=== PATIENT | female | born 2005 | race African-American/Black ===

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

== ENCOUNTER 2024-08-01 13:19 | Inpatient (IN) | payer OTHER, SELFPAY ==
[2024-08-01] MEDS ORDERED: NA CHLORIDE 0.9% 2,000 ML ONE (13:53)
[2024-08-01] MEDS ORDERED: ONDANSETRON 4 MG/2 ML VIAL ONE (13:53)
[2024-08-01 13:57] LABS: Absolute Basophils 0.1 K/uL (0-0.5); Absolute Eosinophils 0.1 K/uL (0-0.5); Absolute Lymphocytes (CBC) 0.7 K/uL (0.7-4.9); Absolute Monocytes 0.6 K/uL (0.1-1.3); Absolute Neutrophil 13.4 K/uL (1.8-8.0); Basophils % 0.3 % (0-1.3); Eosinophils % 0.4 % (0-4.4); Hematocrit 46.2 % (36.0-45.0); Hemoglobin 13.8 g/dL (12.0-15.0); Lymphocytes % 4.6 % (15.3-44.8); MCH 27.6 pg (27.0-35.0); MCHC 29.9 g/dL (32.0-36.0); MCV 92.5 fL (80-100); MPV 9.3 fL (7.6-11.3); Monocytes % 3.8 % (3.3-12.3); Neutrophils % 90.9 % (41.7-73.7); Platelets 328 thou/uL (152-406); RBC Red Blood Cell Count 4.99 M/uL (3.86-4.86); Red Cell Distribution Width 13.9 % (12.1-15.2)
[2024-08-01] MEDS ORDERED: KETOROLAC 30 MG/ML INJ ONE (14:09)
[2024-08-01 14:22] LABS: Specific Gravity 1.024 (1.005-1.030); Sqamous Epithelial <5 /HPF (None Seen); Urine Bacteria <20 /HPF (<20); Urine Bilirubin NEGATIVE (Negative); Urine Blood Negative (Negative); Urine Clarity Clear (Clear); Urine Color Colorless (Yellow); Urine Culture Reflex Order NOT NEEDED; Urine Glucose 4+ (Over) (Negative); Urine Ketones 4+ (Over) (Negative); Urine Micro Reflex YN NO BILL MICROSCOPIC; Urine Mucus Slight /HPF (None Seen); Urine Nitrite NEGATIVE (Negative); Urine Protein NEGATIVE (Negative); Urine RBC <5 /HPF (None Seen); Urine Urobilinogen Normal (Normal); Urine WBC <5 /HPF (<5)
[2024-08-01 14:54] LABS: ALT/SGPT 19 U/L (13-56); AST/SGOT 20 U/L (15-37); Albumin 4.2 g/dL (3.4-5.0); Albumin/Globulin Ratio 0.9 (1.1-1.8); Alkaline Phosphatase 140 U/L (45-117); Anion Gap 28.4 mEq/L (5.0-15.0); BUN Blood Urea Nitrogen 15 mg/dL (7-18); Bilirubin Direct 0.2 mg/dL (0-0.2); Bilirubin Indirect, Calculated 0.5 mg/dL (0.2-0.8); Bilirubin Total 0.7 mg/dL (0.2-1.0); Globulin 4.9 g/dL (2.3-3.5); Glomerular Filtration Rate 54 ml/min (=/>90); Glucose Level 686 mg/dL (74-106); Lipase 13 U/L (13-75); Magnesium 2.5 mg/dL (1.6-2.4); Potassium 4.4 mEq/L (3.5-5.1); Protein, Total 9.1 g/dL (6.4-8.2); Sodium Level 135 mEq/L (136-145)
[2024-08-01 14:59] LABS: Bicarbonate 9 mEq/L (21-32)
[2024-08-01 15:02] LABS: Blood Morphology Comment NOT SEEN (NOT SEEN); Platelet Estimate ADEQ; White Blood Cell Scan OK (OK)
[2024-08-01 15:05] LABS: BETA HYDROXYBUTYRATE > 4.50 mmol/L (0.02-0.27)
--- NOTE | 2024-08-01 16:10 | EDPHYS ---
Physician Documentation [facility] Name: Jono Gacres Age: 19 yrs Sex: Female : 2005 Arrival Date: 08/01/2024 Time: 13:19 Bed 19 Private MD: ED Physician Mick Brito HPI: 08/01 14:31 This 19 yrs old Black Female presents to ER via Ambulatory with complaints of High sb4 Blood Sugar, Vomiting. 14:31 Patient with history of type 1 diabetes states that she has not her insulin pump in sb4 about 3 weeks now because her insurance would not pay for a new Dexcom. States that she has been giving herself insulin intermittently but not really checking her blood sugar. States that she started feeling poorly last night and this morning started experiencing nausea and vomiting. 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 - Infectious Disease History:: Denies. - Social history:: Smoking status: Patient denies any tobacco usage or history of. ROS: 14:31 Constitutional: Negative for fever, chills, and weight loss, sb4 14:31 Abdomen/GI: Positive for nausea and vomiting, 14:31 All other systems are negative, Exam: 14:31 Head/Face: Normocephalic, atraumatic. Eyes: Extra-ocular motions intact. Periorbital sb4 areas with no swelling, redness, or edema. Cardiovascular: Regular rate and rhythm with a normal S1 and S2. Respiratory: No increased work of breathing, no retractions or nasal flaring. Abdomen/GI: Soft, non-tender, no distension. Skin: Warm, dry with normal turgor. Normal color with no rashes, no lesions, and no evidence of cellulitis. 14:31 Constitutional: The patient appears alert, awake, in obvious distress, mildly distressed, uncomfortable, 14:31 ENT: Mouth: Oral mucosa: dry, Vital Signs: 13:35 BP 125 / 70; Pulse 95; Resp 19; Temp 98.6(O); Pulse Ox 100% on R/A; MAP 87 mmHg; Weight tm6 86.18 kg; Height 5 ft. 5 in. ; Pain 8/10; 14:30 BP 125 / 70; Pulse 99; Resp 20; ll1 15:30 BP 122 / 72; Pulse 96; Resp 18; Pulse Ox 100% ; ll1 16:34 BP 120 / 71; Pulse 97; Resp 18; Pulse Ox 100% on R/A; Pain 0/10; ll1 13:35 Body Mass Index 31.62 (86.18 kg, 165.1 cm) tm6 13:35 Pain Scale: Adult tm6 16:34 Pain Scale: Adult ll1 MDM: 13:27 Medical Screening Exam initiated sb4 15:51 Data reviewed: vital signs, nurses notes, lab test result(s). Counseling: I had a sb4 detailed discussion with the patient and/or guardian regarding the historical points, exam findings, and any diagnostic results supporting the discharge/admit diagnosis, lab results, the need for further work-up and treatment in the hospital. 08/01 13:32 Order name: BETA HYDROXYBUTYRATE; Complete Time: 15:07 sb4 08/01 13:32 Order name: Basic Metabolic Panel; Complete Time: 15:07 sb4 08/01 13:32 Order name: CBC with Diff; Complete Time: 15:07 sb4 08/01 13:32 Order name: Hepatic Function; Complete Time: 15:07 sb4 08/01 13:32 Order name: Lipase; Complete Time: 15:07 sb4 08/01 13:32 Order name: Magnesium; Complete Time: 15:07 sb4 08/01 13:32 Order name: Phosphorus; Complete Time: 15:07 sb4 08/01 13:32 Order name: UAM; Complete Time: 14:23 sb4 08/01 13:32 Order name: Test, Urine; Complete Time: 14:23 sb4 08/01 13:42 Order name: Glucose, Ancillary Testing; Complete Time: 13:42 EDMS 08/01 15:02 Order name: CBC Smear Scan; Complete Time: 15:07 EDMS 08/01 16:19 Order name: Basic Metabolic Panel EDAK 08/01 16:19 Order name: Basic Metabolic Panel EDAK 08/01 16:19 Order name: Basic Metabolic Panel EDAK 08/01 16:19 Order name: Basic Metabolic Panel EDMS 08/01 16:19 Order name: Basic Metabolic Panel EDMS 08/01 16:19 Order name: Basic Metabolic Panel EDMS 08/01 16:19 Order name: Basic Metabolic Panel EDMS 08/01 16:19 Order name: Calcium Level EDMS 08/01 16:19 Order name: Calcium Level EDMS 08/01 16:19 Order name: Calcium Level EDMS 08/01 16:19 Order name: Calcium Level EDMS 08/01 16:19 Order name: CBC with Automated Diff EDMS 08/01 16:19 Order name: CBC with Automated Diff EDMS 08/01 16:19 Order name: CBC with Automated Diff EDMS 08/01 16:19 Order name: CBC with Automated Diff EDMS 08/01 16:19 Order name: Magnesium EDMS 08/01 16:19 Order name: Magnesium EDMS 08/01 16:19 Order name: Magnesium EDMS 08/01 16:19 Order name: Magnesium EDMS 08/01 16:19 Order name: Phosphorus EDMS 08/01 16:19 Order name: Phosphorus EDMS 08/01 16:19 Order name: Phosphorus EDMS 08/01 16:19 Order name: Phosphorus EDMS 08/01 17:10 Order name: Glucose, Ancillary Testing; Complete Time: 17:10 EDMS 08/01 13:32 Order name: Cardiac monitoring; Complete Time: 13:58 sb4 08/01 13:32 Order name: IV Saline Lock; Complete Time: 13:50 sb4 08/01 13:32 Order name: NPO; Complete Time: 13:33 sb4 08/01 13:32 Order name: O2 Per Protocol; Complete Time: 13:33 sb4 08/01 13:32 Order name: O2 Sat Monitoring; Complete Time: 13:33 sb4 08/01 14:01 Order name: Labs - recollect needed: GREEN TOP ONLY; Complete Time: 14:12 ss Administered Medications: 13:58 Drug: NS 0.9% IV 2000 ml IV at 1000 ml once; to be given as a bolus over 60 minutes ll1 Route: IV; Rate: 1000 ml; Site: left hand; 16:53 Follow up: Response: No adverse reaction; IV Status: Completed infusion; IV Intake: ll1 2000ml 13:58 Drug: Ondansetron IVP 4 mg IVP once; over 2 minutes Route: IVP; Site: left hand; ll1 14:29 Follow up: Response: No adverse reaction; Nausea is decreased ll1 14:29 Drug: Ketorolac IVP 15 mg IVP once Route: IVP; Site: right antecubital; ll1 15:30 Follow up: Response: No adverse reaction; Pain is decreased ll1 15:52 Drug: Insulin Drip - (Insulin Regular Human IVP 100 units, NS 0.9% IV 100 ml) IV at ll1 calculated rate continuous; Standard concentration 1unit/ml; Dose for DKA is 0.1 units/kg/hr {Co-Signature: hb (Diandra Madden RN).} Route: IV; Rate: calculated rate; Site: right antecubital; 16:53 Follow up: Response: No adverse reaction; IV Status: Infusion continued upon admission; ll1 IV Intake: 8.6ml 16:59 Follow up: Response: Blood sugar is lowered; Rate change 4.3 units/hr ll1 Disposition: 19:48 Co-signature as Attending Physician, Mick Brito MD I reviewed the patient's care rn provided by the Advanced Practice Provider and agree with the diagnosis and treatment plan. Disposition Summary: 08/01/24 16:09 Hospitalization Ordered Notes: Hospitalization Status: Inpatient Admission sb4 Provider: Madison Fuentes Location: Intensive Care Unit sb4 Condition: Serious sb4 Problem: new sb4 Symptoms: are unchanged sb4 Bed/Room Type: Standard sb4 Room Assignment: 7-(08/01/24 16:21) eb Diagnosis - Type 1 diabetes mellitus with ketoacidosis without coma sb4 Forms: - Medication Reconciliation Form sb4 - SBAR form sb4 - Leadership Thank You Letter sb4 Critical care time excluding procedures: 15:51 Critical care time: Bedside Care: 15 minutes, Consultation: 10 minutes, Family sb4 Intervention: 10 minutes. Total time: 35 minutes Signatures: Dispatcher [employer] EDMick Hidalgo MD MD rn Blanchard, Shelby, RN RN ss Botello, Elizabeth eb Lewis, Lynsay, RN RN ll1 Isabel Olivares PA-C PA-C sb4 Scott Fabian RN RN tm6 Diandra Madden RN Corrections: (The following items were deleted from the chart) 16:21 16:09 sb4 eb
--- NOTE | 2024-08-01 16:10 | ER ---
Nurse's Notes [facility] Name: Jono Garces Age: 19 yrs Sex: Female : 2005 Arrival Date: 08/01/2024 Time: 13:19 Bed 19 Private MD: Diagnosis: Type 1 diabetes mellitus with ketoacidosis without coma Presentation: 08/01 13:35 Chief complaint: Patient states: n/v since this morning, has had difficulty managing tm6 type 1 diabetes. Complaining of stomach and headache. Coronavirus screen: Client denies travel out of the [place] in the last 14 days. Ebola Screen: Patient negative for fever greater than or equal to 101.5 degrees Fahrenheit, and additional compatible Ebola Virus Disease symptoms Patient denies exposure to infectious person. Patient denies travel to an Ebola-affected area in the 21 days before illness onset. No symptoms or risks identified at this time. Initial Sepsis Screen: Does the patient meet any 2 criteria? No. Patient's initial sepsis screen is negative. Does the patient have a suspected source of infection? No. Patient's initial sepsis screen is negative. Risk Assessment: Do you want to hurt yourself or someone else? Patient reports no desire to harm self or others. Onset of symptoms was August 01, 2024. 13:35 Method Of Arrival: Ambulatory tm6 13:35 Acuity: KERRY 3 tm6 Triage Assessment: 13:36 General: Appears uncomfortable, ill, Behavior is cooperative. Pain: Complains of pain tm6 in face and abdomen Pain currently is 8 out of 10 on a pain scale. EENT: No signs and/or symptoms were reported regarding the EENT system. Neuro: Level of Consciousness is awake, alert, obeys commands, Oriented to person, place, time, situation. Cardiovascular: Patient's skin is warm and dry. Respiratory: Airway is patent Respiratory effort is even, unlabored, Respiratory pattern is regular, symmetrical. GI: Reports lower abdominal pain, upper abdominal pain, nausea, vomiting. : No signs and/or symptoms were reported regarding the genitourinary system. Derm: No signs and/or symptoms reported regarding the dermatologic system. Musculoskeletal: No signs and/or symptoms reported regarding the musculoskeletal system. 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 - Infectious Disease History:: Denies. - Social history:: Smoking status: Patient denies any tobacco usage or history of. Screenin:00 [facility] ED Fall Risk Assessment (Adult) History of falling in the last 3 months, ll1 including since admission No falls in past 3 months (0 pts) Confusion or Disorientation No (0 pts) Intoxicated or Sedated No (0 pts) Impaired Gait Yes (1 pt) Mobility Assist Device Used Yes (1 pt) Altered Elimination No (0 pt) Score/Fall Risk Level 0 - 2 = Low Risk Maintained a safe environment, Hourly rounding (assess needs \T\ fall precautionary measures) done. Abuse screen: Denies threats or abuse. Nutritional screening: No deficits noted. Tuberculosis screening: No symptoms or risk factors identified. Assessment: 13:58 General: Appears distressed, uncomfortable, ill, Behavior is calm, cooperative, ll1 appropriate for age. Pain: Complains of pain in upper body Quality of pain is described as aching. Neuro: Reports headache. GI: Reports lower abdominal pain, upper abdominal pain, cramping, nausea, vomiting. 14:29 Reassessment: No changes from previously documented assessment. Patient and/or family ll1 updated on plan of care and expected duration. Pain level reassessed. 15:30 Reassessment: No changes from previously documented assessment. Patient and/or family ll1 updated on plan of care and expected duration. Pain level reassessed. Patient is alert, oriented x 3, equal unlabored respirations, skin warm/dry/pink. 15:55 Reassessment: No changes from previously documented assessment. Patient and/or family ll1 updated on plan of care and expected duration. Pain level reassessed. 16:59 Reassessment: No changes from previously documented assessment. Patient and/or family ll1 updated on plan of care and expected duration. Pain level reassessed. Patient is alert, oriented x 3, equal unlabored respirations, skin warm/dry/pink. Vital Signs: 13:35 BP 125 / 70; Pulse 95; Resp 19; Temp 98.6(O); Pulse Ox 100% on R/A; MAP 87 mmHg; Weight tm6 86.18 kg; Height 5 ft. 5 in. ; Pain 8/10; 14:30 BP 125 / 70; Pulse 99; Resp 20; ll1 15:30 BP 122 / 72; Pulse 96; Resp 18; Pulse Ox 100% ; ll1 16:34 BP 120 / 71; Pulse 97; Resp 18; Pulse Ox 100% on R/A; Pain 0/10; ll1 13:35 Body Mass Index 31.62 (86.18 kg, 165.1 cm) tm6 13:35 Pain Scale: Adult tm6 16:34 Pain Scale: Adult ll1 ED Course: 13:22 Patient arrived in ED. im 13:23 Isabel Olivares PA-C is PHCP. sb4 13:23 Mick Brito MD is Attending Physician. sb4 13:31 Kristyn Mcmahan RN is Primary Nurse. ll1 13:32 Arm band placed on Patient placed in an exam room, on a stretcher. ll1 13:36 Triage completed. tm6 13:40 No provider procedures requiring assistance completed. Missed attempt(s): 22 gauge in ll1 left hand. Bleeding controlled, band aid applied, catheter tip intact. 13:45 Inserted saline lock: 24 gauge in left hand, using aseptic technique. Blood collected. ll1 Flushed with 10 mL NS. 14:00 Patient has correct armband on for positive identification. Bed in low position. ll1 Provided Education on: ER procedures and process. Client placed on continuous cardiac and pulse oximetry monitoring. NIBP monitoring applied. 14:12 UAM Sent. ll1 14:25 Accessed peripheral vein via ultrasound, utilizing dynamic ultrasound technique using ss 20G Nexia IV catheter ,sterile technique, per hospital protocol. Clean \T\ dry. Dressing intact. Good blood return. Flushes easily. 16:09 Madison Fuentes MD is Hospitalizing Provider. sb4 16:54 Patient admitted, IV remains in place. ll1 Administered Medications: 13:58 Drug: NS 0.9% IV 2000 ml IV at 1000 ml once; to be given as a bolus over 60 minutes ll1 Route: IV; Rate: 1000 ml; Site: left hand; 16:53 Follow up: Response: No adverse reaction; IV Status: Completed infusion; IV Intake: ll1 2000ml 13:58 Drug: Ondansetron IVP 4 mg IVP once; over 2 minutes Route: IVP; Site: left hand; ll1 14:29 Follow up: Response: No adverse reaction; Nausea is decreased ll1 14:29 Drug: Ketorolac IVP 15 mg IVP once Route: IVP; Site: right antecubital; ll1 15:30 Follow up: Response: No adverse reaction; Pain is decreased ll1 15:52 Drug: Insulin Drip - (Insulin Regular Human IVP 100 units, NS 0.9% IV 100 ml) IV at ll1 calculated rate continuous; Standard concentration 1unit/ml; Dose for DKA is 0.1 units/kg/hr {Co-Signature: hb (Diandra Madden RN).} Route: IV; Rate: calculated rate; Site: right antecubital; 16:53 Follow up: Response: No adverse reaction; IV Status: Infusion continued upon admission; ll1 IV Intake: 8.6ml 16:59 Follow up: Response: Blood sugar is lowered; Rate change 4.3 units/hr ll1 Medication: 14:00 VIS not applicable for this client. ll1 Intake: 16:53 IV: 2000ml; Total: 2000ml. ll1 16:53 IV: 9ml; Total: 2009ml. ll1 Outcome: 16:09 Decision to Hospitalize by Provider. sb4 16:54 Admitted to ICU accompanied by nurse, via stretcher, room ICU 7, on monitor, with ll1 chart, Report called to DEJA Ward in ICU 16:54 Condition: stable 16:54 Instructed on the need for admit, 17:27 Patient left the ED. ss Signatures: Keila Turk RN RN ss Kristyn Mcmahan RN RN ll1 Isabel Olivares PA-C PAOctaviano sb4 Cady Cardenas Tawney RN RN tm6 Diandra Madden RN hb
[2024-08-01] MEDS ORDERED: ONDANSETRON 4 MG/2 ML VIAL IV PRN (16:13)
[2024-08-01] MEDS: D5 0.45 NS 1,000 ML IV SCH (17:00)
[2024-08-01] MEDS: NA CHLORIDE 0.9% 1,000 ML IV SCH (17:00)
[2024-08-01] MEDS: INSULIN REGULAR, HUMAN 100 UNIT in NA CHLORIDE 0.9% 100 ML IV SCH (19:00)
[2024-08-01 19:39] LABS: Anion Gap 16.6 mEq/L (5.0-15.0); Potassium 3.6 mEq/L (3.5-5.1)
[2024-08-01] MEDS: NAPROXEN 250 MG TAB PO PRN (21:09)
[2024-08-01 22:29] LABS: Anion Gap 13.8 mEq/L (5.0-15.0); Potassium 3.8 mEq/L (3.5-5.1)
--- NOTE | 2024-08-02 00:03 | P.HP ---
Certification for Inpatient Patient admitted to: Inpatient With expected LOS: >2 Midnights Patient will require the following post-hospital care: None Practitioner: I am a practitioner with admitting privileges, knowledge of patient current condition, hospital course, and medical plan of care. Services: Services provided to patient in accordance with Admission requirements found in Title 42 Section 412.3 of the Code of Federal Regulations Patient History Date of Service: 08/01/24 Reason for admission: Diabetic ketoacidosis History of Present Illness: patient is a 19-year-old female with history of diabetic ketoacidosis who presents to the hospital with elevated blood sugars. Patient recently got placed on insulin pump. However patient had a dexcom that was nonfunctional. She stopped using her insulin pump. She has been taking her NovoLog. However, her blood sugars have still been elevated. She started having nausea and vomiting and she stopped taking her insulin. Her blood sugars became significantly elevated so she came into the emergency room with diabetic ketoacidosis. Patient is given IV fluids and insulin drip. Blood sugars are stabilizing. Patient admitted for inpatient hospitalization. Allergies No Known Allergies Allergy (Verified 11/13/21 18:52) Home Medications: Insulin Aspart [Novolog Flexpen] See Protocol 08/01/24 Insulin Degludec [Tresiba Flextouch U-200] 25 unit SQ DAILY 08/01/24 - Past Medical/Surgical History Has patient received pneumonia vaccine in the past: No -: Type 1 diabetes Past Surgical History: Patient denies surgical history - Family History Mother Notes: gestational diabetes Father Notes: asthma - Social History Smoking Status: Never smoker Alcohol use: Yes CD- Drugs: No Caffeine use: Yes Place of Residence: Home Review of Systems 10-point ROS is otherwise unremarkable Physical Examination - Vital Signs Temperature: 98.1 F Blood Pressure: 109/59 Pulse: 101 Respirations: 18 Pulse Ox (%): 100 - Physical Exam General: Alert, In no apparent distress, Oriented x3 HEENT: Atraumatic, PERRLA, Mucous membr. moist/pink, EOMI, Sclerae nonicteric Neck: Supple, 2+ carotid pulse no bruit, No LAD, Without JVD or thyroid abnormality Respiratory: Clear to auscultation bilaterally, Normal air movement Cardiovascular: Regular rate/rhythm, Normal S1 S2 Gastrointestinal: Normal bowel sounds, Soft and benign, Non-distended, No tenderness Musculoskeletal: No clubbing, No swelling, No tenderness Integumentary: No rashes Neurological: Normal gait, Normal speech, Normal strength at 5/5 x4 extr, Normal tone, Sensation intact, Cranial nerves 3-12 intact, Normal affect Lymphatics: No axilla or inguinal lymphadenopathy - Studies Laboratory Data (last 24 hrs) 08/01/24 08/01/24 14:22 13:48 WBC 14.70 H Hgb 13.8 Hct 46.2 H Plt Count 328 Sodium 135 L Potassium 4.4 BUN 15 Creatinine 1.41 H Glucose 686 H* Phosphorus 6.0 H Magnesium 2.5 H Total Bilirubin 0.7 AST 20 ALT 19 Alkaline Phosphatase 140 H Lipase 13 Assessment & Plan - Problems (Diagnosis) (1) Diabetic ketoacidosis Current Visit: Yes Status: Acute - Plan Plan: 1. Continue with aggressive IV hydration 2. Continue with an insulin drip 3. Monitor electrolytes 4. Start diabetic diet. Long-acting insulin if patient tolerates it once anion gap is closed. 5. Outpatient follow-up for insulin pump replacement or DexCom. Discharge Plan: Home Plan to discharge in: 48 Hours - Advance Directives Does patient have a Living Will: No Does patient have a Durable POA for Healthcare: No - Code Status/Comfort Care Code Status Assessed: Yes Code Status: Full Code Critical Care: Yes Time Spent Managing PTS Care (In Minutes): 45
[2024-08-02 05:39] LABS: Absolute Eosinophils 0.1 K/uL (0-0.5); Absolute Lymphocytes (CBC) 1.9 K/uL (0.7-4.9); Absolute Monocytes 0.8 K/uL (0.1-1.3); Absolute Neutrophil 7.3 K/uL (1.8-8.0); Basophils % 0.3 % (0-1.3); Eosinophils % 1.1 % (0-4.4); Hematocrit 37.1 % (36.0-45.0); Hemoglobin 11.6 g/dL (12.0-15.0); Lymphocytes % 18.8 % (15.3-44.8); MCH 27.8 pg (27.0-35.0); MCHC 31.2 g/dL (32.0-36.0); MCV 89.4 fL (80-100); MPV 8.8 fL (7.6-11.3); Monocytes % 7.8 % (3.3-12.3); Platelets 262 thou/uL (152-406); RBC Red Blood Cell Count 4.15 M/uL (3.86-4.86); Red Cell Distribution Width 13.8 % (12.1-15.2)
[2024-08-02 05:51] LABS: Anion Gap 17.3 mEq/L (5.0-15.0); Magnesium 2.1 mg/dL (1.6-2.4); Potassium 4.3 mEq/L (3.5-5.1)
[2024-08-02] MEDS ORDERED: INSULIN DEGLUDEC 25 UNIT SQ SCH (06:00)
[2024-08-02] MEDS: INSULIN REGULAR, HUMAN 100 UNIT in NA CHLORIDE 0.9% 100 ML IV SCH (06:00)
[2024-08-02] MEDS: D5 0.45 NS 1,000 ML IV SCH ×2 (06:11→06:42)
[2024-08-02] MEDS ORDERED: INSULIN REGULAR, HUMAN 100 UNIT in NA CHLORIDE 0.9% 100 ML IV SCH (06:30)
[2024-08-02] MEDS ORDERED: INSULIN REGULAR (HUMAN) 100 UNIT/ML IV SCH ×2 (06:30→07:00)
[2024-08-02] MEDS: NA CHLORIDE 0.9% 1,000 ML IV SCH ×2 (06:43→06:46)
[2024-08-02] MEDS ORDERED: INSULIN REGULAR (HUMAN) 100 UNIT/ML SQ SCH ×2 (07:30→21:00)
[2024-08-02] MEDS: FLU (Fluarix Triv) TS24-25(6MOS UP)/PF 45 MCG/0.5 ML Syringe IM ONE (07:40)
[2024-08-02] MEDS: CEFTRIAXONE 1,000 MG in NA CHLORIDE 0.9% 50 ML IVPB SCH (08:25)
[2024-08-02] MEDS: ENOXAPARIN 40 MG/0.4 ML SQ SCH (08:25)
[2024-08-02] MEDS ORDERED: HOME MED 1 EA UNK (Insulin Degludec [Tresiba Flextouch U-200] 200 UNIT/ML Insuln.Pen) SQ SCH (09:00)
[2024-08-02] MEDS: D5.45NS W/KCL 20MEQ 1,000 ML IV ONE (09:59)
[2024-08-02] MEDS: D5 0.45 NS 1,000 ML with POTASSIUM CL 40 MEQ IV SCH (10:22)
[2024-08-02] MEDS: D5.45NS W/KCL 20MEQ 1,000 ML IV SCH (10:41)
[2024-08-02 12:07] LABS: Anion Gap 17.6 mEq/L (5.0-15.0); Potassium 3.6 mEq/L (3.5-5.1)
--- NOTE | 2024-08-02 12:24 | P.PN ---
Subjective Date of Service: 08/02/24 Chief Complaint: Diabetic ketoacidosis Subjective: No new changes She states that she she was not able to sleep last night, catching up on sleep, denied any nausea and vomiting or urinary or respiratory symptoms. She states that she recently started on insulin pump which is not functioning properly also her Dexcom/continuous glucose monitor device is not working either. She cannot remember the last hemoglobin A1c, she states that she used to take 25 unit degludec once a day, 10 to 15 unit NovoLog with meals based on sliding scale. Review of Systems Other: Consitutional; fever(-), chills (-), rigor(-), night sweat(-), unintentional weight loss(-), malaise (-) HEENT; diplopia (-), rhinorrhea (-), epistaxis (-), otorrhea (-), otalgia (-) Respiratory; shortness of breath (-), wheezing (-), cough (-), sputum (-), pleuritic chest pain (-) Cardiovascular; chest pain (-), peripheral edema (-), paroxysmal nocturnal dyspnea (-), orthopnea (-) Gastrointestinal; nausea (-), vomiting (-), abdominal pain (-), diarrhea (-), constipation (-), melena (-), hematochezia (-) Genitourinary; urinary frequency (-), dysuria (-), urgency (-), flank pain (-), gross hematuria (-), incontinence (-) Skin; rash (-), 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 General: Not acutely ill looking, in no apparent distress,. HEENT: Normocephalic, atraumatic, nonicteric sclera, nonanemic conjunctive. Neck: Supple, without JVD or goiter or thyroid mass. Respiratory: Normal breathing effort, clear to auscultation bilaterally, no crackles no wheezing or rhonchi. Cardiovascular: Regular rate and rhythm, S1, S2 normal, no murmur no gallop. Gastrointestinal: Normal bowel sounds, nondistended, nontender, No ascites, , No masses, no hepatosplenomegaly. Extremities : No clubbing, No peripheral edema, full range of motion, no deformity, no muscle atrophy. Integumentary: No rashes, petechia, suspected lesions. Lymphatics: No axilla or cervical lymphadenopathy. Neurology; alert awake oriented x3, no focal neurologic deficit, normal affection . mood and behavior. - Studies Laboratory Data (last 24 hrs) 08/01/24 08/01/24 14:22 13:48 WBC 14.70 H Hgb 13.8 Hct 46.2 H Plt Count 328 Sodium 135 L Potassium 4.4 BUN 15 Creatinine 1.41 H Glucose 686 H* Phosphorus 6.0 H Magnesium 2.5 H Total Bilirubin 0.7 AST 20 ALT 19 Alkaline Phosphatase 140 H Lipase 13 Assessment And Plan - Plan This is 19 years old female patient with past medical history notable for type I DM, currently started on insulin pump. Presented to emergency room for elevated blood sugar at home after his insulin pump and Dexcom were not working properly. She was diagnosed with DKA and admitted in MICU for insulin infusion on August 01, 2024 #1 DKA secondary to malfunctioning insulin pump Initial serum glucose 686, bicarb 9, anion gap 28, heavy ketonuria, positive beta hydroxybutyric acid Started on insulin drip but stopped for blood sugar less than 200, currently blood sugar is over 300, anion gap back to 17, patient need to go back on insulin infusion, will check to IV fluid to D5 half saline with potassium 40 mEq at 100 mL/h once blood sugar less than 250, target blood sugar is 1 50-2 50 The cause of DKA is malfunction of insulin pump, no sign of infection, I will discontinue ceftriaxone. #2 uncontrolled type 2 diabetes Hemoglobin A1c 10 on admission Disposition; patient continues to need insulin infusion for DKA in ICU
[2024-08-02] MEDS: INSULIN GLARGINE 100 UNIT/ML SQ SCH (14:30)
[2024-08-02 16:35] LABS: Anion Gap 13.8 mEq/L (5.0-15.0); Potassium 3.8 mEq/L (3.5-5.1)
[2024-08-02] MEDS ORDERED: D10W 125 ML IV PRN (17:00)
[2024-08-02] MEDS ORDERED: GLUCAGON 1 MG/VIAL IM PRN (17:00)
[2024-08-02] MEDS: INSULIN LISPRO 100 UNIT/1 ML SQ ONE (17:06)
[2024-08-02] MEDS: INSULIN LISPRO 100 UNIT/1 ML SQ SCH ×2 (17:08→17:24)
[2024-08-02] MEDS: INSULIN GLARGINE 100 UNIT/ML SQ ONE (17:24)
[2024-08-02 17:32] VITALS: BMI 31.6
[2024-08-02 20:15] VITALS: O2SAT 100
[2024-08-02 20:16] VITALS: BP 130/88; TEMP 97.1
[2024-08-03] MEDS ORDERED: INSULIN LISPRO 100 UNIT/1 ML SQ SCH (07:30)
== END 2024-08-02 20:30 | disposition left against medical advice (07) | DRG 919 ==
LOC: ER 13:19 → ERHOLD 16:13 → 3RD-ICU 16:40
PROVIDERS: ADMIT Hospitalist; ATTEND Internal Medicine
DX: T85.614A Breakdown (mechanical) of insulin pump, initial encounter (principal); E10.10 Type 1 diabetes mellitus with ketoacidosis without coma; T38.3X6A Underdosing of insulin and oral hypoglycemic [antidiabetic] drugs, initial encounter; Z79.4 Long term (current) use of insulin; Z96.41 Presence of insulin pump (external) (internal); Z91.148 Patient's other noncompliance with medication regimen for other reason
CPT/HCPCS: 36415; 80048; 80076; 81001; 81025; 82010; 82947; 83036; 83690; 83735; 84100; 85025; 99285; J0696; J1650; J2405; J3480; J7030; J7799

== ENCOUNTER 2024-10-07 18:25 | Emergency (ER) | payer OTHER ==
--- NOTE | 2024-10-07 18:51 | EDPHYS ---
Physician Documentation [facility] Name: Jono Garces Age: 19 yrs Sex: Female : 2005 Arrival Date: 10/07/2024 Time: 18:25 Bed 11 Private MD: ED Physician Davy Toribio HPI: 10/07 19:04 This 19 yrs old Black Female presents to ER via Ambulatory with complaints of Vaginal sb4 Bleeding, + Preg <12wks. 19:04 The patient presents to the emergency department with vaginal bleeding, clots this sb4 morning/afternoon, now light. The estimated gestational age is 5 weeks. course: care: none, Leakage of Fluid: none appreciated, Ultrasound: the patient has not had an ultrasound, Risk/complications: type I diabetes. Previous pregnancies: in previous pregnancies patient has had. PT SKILLED: 19:04 3, Full Term 1, Living 1, LMP 09/03/2024, Verified, EDC 06/10/2025, sb4 Gestational age from LMP: 5 weeks 0 days Historical: - Allergies: 18:54 No Known Allergies; hb - PMHx: 18:54 Diabetes - IDDM; hb - Immunization history:: Adult Immunizations up to date. - Infectious Disease History:: Denies. - Social history:: Smoking status: Patient denies any tobacco usage or history of. ROS: 19:04 Constitutional: Negative for fever, chills, and weight loss, sb4 19:04 : Positive for vaginal bleeding, 19:04 All other systems are negative, Exam: 19:04 Constitutional: This is a well developed, well nourished patient who is awake, alert, sb4 and in no acute distress. Head/Face: Normocephalic, atraumatic. Eyes: Extra-ocular motions intact. Periorbital areas with no swelling, redness, or edema. ENT: Mucous membranes moist. Cardiovascular: Regular rate and rhythm with a normal S1 and S2. Respiratory: No increased work of breathing, no retractions or nasal flaring. Abdomen/GI: Soft, non-tender, no distension. Skin: Warm, dry with normal turgor. Normal color with no rashes, no lesions, and no evidence of cellulitis. Vital Signs: 18:52 BP 162 / 101; Pulse 97; Resp 16; Temp 97.5; Pulse Ox 100% on R/A; Weight 94.8 kg; hb Height 5 ft. 5 in. ; Pain 0/10; 21:43 BP 150 / 98; Pulse 90; Resp 18 S; Pulse Ox 99% on R/A; br2 18:52 Body Mass Index 34.78 (94.80 kg, 165.1 cm) hb 18:52 Pain Scale: Adult hb MDM: 18:30 Medical Screening Exam initiated sb4 22:03 Data reviewed: vital signs, nurses notes, lab test result(s), radiologic studies, and sb4 as a result, I will discharge patient. Care significantly affected by the following chronic conditions: Diabetes. Counseling: I had a detailed discussion with the patient and/or guardian regarding the historical points, exam findings, and any diagnostic results supporting the discharge/admit diagnosis, the presence of at least one elevated blood pressure reading (>120/80) during this emergency department visit, lab results, radiology results, the need for outpatient follow up, for definitive care, an OB/Gyne specialist. 10/07 18:59 Order name: Basic Metabolic Panel; Complete Time: 21:30 sb4 10/07 18:59 Order name: CBC with Diff; Complete Time: 20:53 sb4 10/07 18:59 Order name: Test, Urine; Complete Time: 20:50 sb4 10/07 18:59 Order name: Quantitative Hcg; Complete Time: 21:30 sb4 10/07 18:59 Order name: Urinalysis w/ reflexes; Complete Time: 20:53 sb4 10/07 18:59 Order name: US Transvaginal Ob; Complete Time: 20:20 sb4 10/07 18:59 Order name: IV Saline Lock; Complete Time: 21:31 sb4 10/07 18:59 Order name: Labs collected and sent; Complete Time: 21:31 sb4 Administered Medications: No medications were administered Disposition Summary: 10/07/24 21:34 Discharge Ordered Notes: Location: Home(10/07/24 21:34) sb4 Problem: new(10/07/24 21:34) sb4 Symptoms: have improved(10/07/24 21:34) sb4 Condition: Stable(10/07/24 21:34) sb4 Diagnosis - Threatened sb4 Followup: sb4 - With: Private Physician - When: 2 - 3 days - Reason: Further diagnostic work-up, Recheck today's complaints, Re-evaluation by your physician Discharge Instructions: - Discharge Summary Sheet sb4 - Threatened Miscarriage sb4 - Vaginal Bleeding During , First Trimester sb4 Forms: - Patient Portal Instructions sb4 - Leadership Thank You Letter sb4 Addendum: 10/09/2024 19:21 Co-signature as Attending Physician, Davy Toribio MD I reviewed the patient's care r t provided by the Advanced Practice Provider and agree with the diagnosis and treatment plan. Signatures: Dispatcher [employer] EDDiandra Rousseau, RN RN Isabel Loving, PAChandniC PAChandniC sb4 Davy Toribio MD MD rt Corrections: (The following items were deleted from the chart) 10/07 18:51 18:50 Home sb4 sb4 18:51 18:50 new sb4 sb4 18:51 18:50 have improved sb4 sb4 18:51 18:50 Stable sb4 sb4 18:51 18:50 Encounter for removal of sutures sb4 sb4 18:51 18:50 Tinea corporis sb4 sb4
--- NOTE | 2024-10-07 20:18 | RAD REPORT ---
EXAMINATION: US Transvaginal OB COMPARISON: None. HISTORY: [facility] MAIN VAGINAL BLEEDING TECHNIQUE: Real-time ultrasound was performed through the pelvis. A transvaginal scan was performed t o better visualize the intrauterine contents and adnexa. FINDINGS: A small gestational sac seen within the upper endometrial cavity, mean diameter measures 4.1 mm, kimberley esponding to gestational age 5 weeks and 1 day. Crescentic collection further distally at the fundus, measuring 2.2 x 0.6 x 0.3 cm suggesting a small subchorionic hemorrhage Both ovaries are visualized and appear unremarkable. Trace fluid in the cul-de-sac. Patient's LMP date is 09/03/2024. IMPRESSION: Single intrauterine uterine gestational sac, with a composite sonographic age of 5 weeks, 1 days. No pole or cardiac pulsations visualized. Crescentic collection which may represent a subchorionic hemorrhage at the fundus. Close clinical follow-up, and consideration of short-term sonographic follow-up in 7-10 days are mary ellen mmended for these findings, and to ensure viability.
[2024-10-07 20:49] LABS: Absolute Eosinophils 0.1 K/uL (0-0.5); Absolute Monocytes 0.8 K/uL (0.1-1.3); Absolute Neutrophil 4.5 K/uL (1.8-8.0); Basophils % 0.3 % (0-1.3); Eosinophils % 1.5 % (0-4.4); Hematocrit 40.2 % (36.0-45.0); Hemoglobin 13.6 g/dL (12.0-15.0); Lymphocytes % 27.2 % (15.3-44.8); MCH 29.2 pg (27.0-35.0); MCHC 33.8 g/dL (32.0-36.0); MCV 86.5 fL (80-100); MPV 8.4 fL (7.6-11.3); Monocytes % 10.2 % (3.3-12.3); Neutrophils % 60.8 % (41.7-73.7); Nucleated Red Blood Cells % 0.1 % (0-0); Platelets 316 thou/uL (152-406); RBC Red Blood Cell Count 4.65 M/uL (3.86-4.86); Red Cell Distribution Width 12.6 % (12.1-15.2); Specific Gravity > 1.030 (1.005-1.030)
[2024-10-07 20:50] LABS: Specific Gravity > 1.030 (1.005-1.030); Urine Bilirubin NEGATIVE (Negative); Urine Blood Negative (Negative); Urine Clarity Clear (Clear); Urine Color Colorless (Yellow); Urine Glucose 4+ (Over) (Negative); Urine Ketones TRACE (Negative); Urine Microscopic Reflex YN NO UMIC; Urine Nitrite NEGATIVE (Negative); Urine Protein NEGATIVE (Negative); Urine Urobilinogen Normal (Normal)
[2024-10-07 21:09] LABS: Anion Gap 6.6 mEq/L (5.0-15.0); Potassium 3.6 mEq/L (3.5-5.1)
--- NOTE | 2024-10-07 21:35 | ER ---
Nurse's Notes [facility] Name: Jono Garces Age: 19 yrs Sex: Female : 2005 Arrival Date: 10/07/2024 Time: 18:25 Bed 11 Private MD: Diagnosis: Threatened Presentation: 10/07 18:52 Chief complaint: Vaginal bleeding + large clots since this morning. Recent positive hb home test, LMP 09/03, . Coronavirus screen: At this time, the client does not indicate any symptoms associated with coronavirus-19. Ebola Screen: No symptoms or risks identified at this time. Initial Sepsis Screen: Does the patient meet any 2 criteria? No. Patient's initial sepsis screen is negative. Does the patient have a suspected source of infection? No. Patient's initial sepsis screen is negative. Risk Assessment: Do you want to hurt yourself or someone else? Patient reports no desire to harm self or others. Onset of symptoms was October 07, 2024. 18:52 Method Of Arrival: Ambulatory hb 18:52 Acuity: KERRY 3 hb HAND SINGER: 19:04 3, Full Term 1, Living 1, LMP 09/03/2024, Verified, EDC 06/10/2025, sb4 Gestational age from LMP: 5 weeks 0 days Historical: - Allergies: 18:54 No Known Allergies; hb - PMHx: 18:54 Diabetes - IDDM; hb - Immunization history:: Adult Immunizations up to date. - Infectious Disease History:: Denies. - Social history:: Smoking status: Patient denies any tobacco usage or history of. Screenin:50 [facility] ED Fall Risk Assessment (Adult) History of falling in the last 3 months, br2 including since admission No falls in past 3 months (0 pts) Confusion or Disorientation No (0 pts) Intoxicated or Sedated No (0 pts) Impaired Gait No (0 pts) Mobility Assist Device Used No (0 pt) Altered Elimination No (0 pt) Score/Fall Risk Level 0 - 2 = Low Risk Oriented to surroundings. Abuse screen: Denies threats or abuse. Denies injuries from another. Nutritional screening: No deficits noted. Tuberculosis screening: No symptoms or risk factors identified. Assessment: 20:50 Reassessment: Patient and/or family updated on plan of care and expected duration. Pain br2 level reassessed. Patient is alert, oriented x 3, equal unlabored respirations, skin warm/dry/pink. General: Appears in no apparent distress. comfortable, Behavior is calm, cooperative. Pain: Denies pain. : Reports vaginal bleeding that is bright red, with clots, moderate flow, since this morning. 21:43 Reassessment: Patient and/or family updated on plan of care and expected duration. Pain br2 level reassessed. Patient is alert, oriented x 3, equal unlabored respirations, skin warm/dry/pink. Patient denies pain at this time. Vital Signs: 18:52 BP 162 / 101; Pulse 97; Resp 16; Temp 97.5; Pulse Ox 100% on R/A; Weight 94.8 kg; hb Height 5 ft. 5 in. ; Pain 0/10; 21:43 BP 150 / 98; Pulse 90; Resp 18 S; Pulse Ox 99% on R/A; br2 18:52 Body Mass Index 34.78 (94.80 kg, 165.1 cm) hb 18:52 Pain Scale: Adult hb ED Course: 18:28 Patient arrived in ED. mr 18:29 Isabel Olivares PA-C is PHCP. sb4 18:29 Davy Toribio MD is Attending Physician. sb4 18:54 Triage completed. hb 18:54 Arm band placed on. hb 19:36 US Transvaginal Ob In Process Unspecified. EDMS 20:44 Katy Cuellar, RN is Primary Nurse. br2 20:50 Patient has correct armband on for positive identification. Bed in low position. Call br2 light in reach. Side rails up X 1. Provided Education on: plan of care. 20:50 Inserted saline lock: 20 gauge in right antecubital area, using aseptic technique. br2 Blood collected. Flushed with 10 mL NS. 21:44 IV discontinued, intact, bleeding controlled, No redness/swelling at site. Pressure br2 dressing applied. 21:44 No provider procedures requiring assistance completed. br2 Administered Medications: No medications were administered Medication: 20:50 VIS not applicable for this client. br2 Outcome: 18:50 Discharge ordered by . sb4 21:34 Discharge ordered by . sb4 21:44 Discharged to home ambulatory, br2 21:44 Condition: good 21:44 Discharge instructions given to patient, Instructed on discharge instructions, follow up and referral plans. Demonstrated understanding of instructions, follow-up care, 21:44 Patient left the ED. br2 Signatures: Dispatcher [employer] EDCT Aminta Aguilar, Reg Reg mr Diandra Madden, RN RN Isabel Loving, CHERELLE VILLARREAL sb4 Katy Cuellar RN RN br2
[2024-10-07 21:53] VITALS: TEMP 97.5
[2024-10-07 21:55] VITALS: BP 150/98; O2SAT 99
== END 2024-10-07 21:44 | disposition home or self-care (01) ==
LOC: ER 18:25
DX: O20.0 Threatened abortion (principal); Z3A.01 Less than 8 weeks gestation of pregnancy
CPT/HCPCS: 36415; 76817; 80048; 81003; 81025; 84702; 85025; 99283

== ENCOUNTER 2024-12-15 04:54 | Emergency (ER) | payer OTHER ==
[2024-12-15] MEDS ORDERED: BUPIVACAINE 0.5% PF 10 ML VIAL ONE (06:12)
[2024-12-15] MEDS ORDERED: CEFTRIAXONE 1000 MG/VIAL ONE (06:23)
[2024-12-15] MEDS ORDERED: NA CHLORIDE 0.9% 1,000 ML ONE (06:39)
[2024-12-15 06:49] LABS: Absolute Eosinophils 0.1 K/uL (0-0.5); Absolute Lymphocytes (CBC) 1.6 K/uL (0.7-4.9); Absolute Monocytes 0.5 K/uL (0.1-1.3); Absolute Neutrophil 5.7 K/uL (1.8-8.0); Basophils % 0.3 % (0-1.3); Eosinophils % 1.1 % (0-4.4); Hemoglobin 12.2 g/dL (12.0-15.0); MCH 28.9 pg (27.0-35.0); MCV 85.1 fL (80-100); MPV 7.6 fL (7.6-11.3); Monocytes % 6.2 % (3.3-12.3); Neutrophils % 72.4 % (41.7-73.7); Nucleated Red Blood Cells % 0.1 % (0-0); Platelets 341 thou/uL (152-406); RBC Red Blood Cell Count 4.22 M/uL (3.86-4.86)
[2024-12-15 07:14] LABS: AST/SGOT 11 U/L (15-37); Albumin/Globulin Ratio 0.7 (1.1-1.8); Alkaline Phosphatase 54 U/L (45-117); Anion Gap 11.6 mEq/L (5.0-15.0); BUN Blood Urea Nitrogen 6 mg/dL (7-18); Bicarbonate 24 mEq/L (21-32); Bilirubin Total 0.5 mg/dL (0.2-1.0); Globulin 4.3 g/dL (2.3-3.5); Glomerular Filtration Rate 112 ml/min (=/>90); Glucose Level 190 mg/dL (74-106); Potassium 3.6 mEq/L (3.5-5.1); Protein, Total 7.3 g/dL (6.4-8.2); Sodium Level 136 mEq/L (136-145)
[2024-12-15 07:15] LABS: ALT/SGPT < 14 U/L (13-56)
--- NOTE | 2024-12-15 07:23 | ER ---
Nurse's Notes [facility] Name: Jono Garces Age: 19 yrs Sex: Female : 2005 Arrival Date: 12/15/2024 Time: 04:54 Bed 18 Private MD: Diagnosis: Dental pain Presentation: 12/15 05:06 Chief complaint: Patient states: bad toothache where I can't eat in 2 days. I'm a type vc1 1 diabetic and I am starting to feel dehydrated. Coronavirus screen: Client denies travel out of the [place] in the last 14 days. At this time, the client does not indicate any symptoms associated with coronavirus-19. Ebola Screen: Patient negative for fever greater than or equal to 101.5 degrees Fahrenheit, and additional compatible Ebola Virus Disease symptoms Patient denies exposure to infectious person. Patient denies travel to an Ebola-affected area in the 21 days before illness onset. No symptoms or risks identified at this time. Initial Sepsis Screen: Does the patient meet any 2 criteria? No. Patient's initial sepsis screen is negative. Does the patient have a suspected source of infection? No. Patient's initial sepsis screen is negative. Risk Assessment: Do you want to hurt yourself or someone else? Patient reports no desire to harm self or others. Note pain for one week. Onset of symptoms is unknown. 05:06 Method Of Arrival: Ambulatory vc1 05:06 Acuity: KERRY 4 vc1 Triage Assessment: 05:09 General: Appears in no apparent distress. uncomfortable, Behavior is calm, cooperative, vc1 appropriate for age. Pain: Complains of pain in lower right third molar. EENT: Reports pain in lower right third molar Pain is 10 out of 10 on a pain scale. Neuro: Level of Consciousness is awake, alert, obeys commands, Oriented to person, place, time, situation, Appropriate for age. Cardiovascular: Capillary refill < 3 seconds Patient's skin is warm and dry. Respiratory: Airway is patent Respiratory effort is even, unlabored, Respiratory pattern is regular, symmetrical. GI: No deficits noted. No signs and/or symptoms were reported involving the gastrointestinal system. : No deficits noted. No signs and/or symptoms were reported regarding the genitourinary system. Derm: No deficits noted. No signs and/or symptoms reported regarding the dermatologic system. Musculoskeletal: No deficits noted. No signs and/or symptoms reported regarding the musculoskeletal system. 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 - Infectious Disease History:: Denies. - Social history:: Smoking status: Patient denies any tobacco usage or history of. - Family history:: not pertinent. Screenin:09 Abuse screen: Denies threats or abuse. Nutritional screening: No deficits noted. vc1 Tuberculosis screening: No symptoms or risk factors identified. 05:10 [facility] ED Fall Risk Assessment (Adult) History of falling in the last 3 months, vc1 including since admission No falls in past 3 months (0 pts) Confusion or Disorientation No (0 pts) Intoxicated or Sedated No (0 pts) Impaired Gait No (0 pts) Mobility Assist Device Used No (0 pt) Altered Elimination No (0 pt) Score/Fall Risk Level 0 - 2 = Low Risk Oriented to surroundings, Maintained a safe environment, Educated pt \T\ family on fall prevention, incl call for assistance when getting out of bed. Assessment: 06:33 Reassessment: No changes from previously documented assessment. Patient and/or family rg5 updated on plan of care and expected duration. Pain level reassessed. Patient is alert, oriented x 3, equal unlabored respirations, skin warm/dry/pink. 07:00 Reassessment: Patient appears in no apparent distress at this time. Patient is alert, bp oriented x 3, equal unlabored respirations, skin warm/dry/pink. Vital Signs: 05:06 Weight 95.71 kg; Height 5 ft. 5 in. ; Pain 10/10; vc1 05:11 BP 138 / 72; Pulse 87; Resp 14; Temp 98.2; Pulse Ox 100% ; vc1 06:05 BP 133 / 73; Pulse 87; Temp 98.4; Pulse Ox 100% on R/A; af3 07:30 BP 117 / 68; Pulse 80; Resp 16; Pulse Ox 100% ; bp 05:06 Body Mass Index 35.11 (95.71 kg, 165.1 cm) vc1 05:06 Pain Scale: Adult vc1 [place] Coma Score: 07:16 Eye Response: spontaneous(4). Motor Response: obeys commands(6). Verbal Response: sp4 oriented(5). Total: 15. ED Course: 04:57 Patient arrived in ED. gm2 04:58 Gilles Beach MD is Attending Physician. sp4 05:08 Triage completed. vc1 05:11 Arm band placed on right wrist. vc1 05:11 Patient has correct armband on for positive identification. Provided Education on: Plan vc1 of care. 07:14 Attending Physician role handed off by Gilles Beach MD rt 07:14 Davy Toribio MD is Attending Physician. rt 07:40 John Crawford, DEJA is Primary Nurse. bp 08:18 IV discontinued, intact, bleeding controlled, No redness/swelling at site. Pressure iw dressing applied. 08:19 No provider procedures requiring assistance completed. iw Administered Medications: 06:30 Drug: Rocephin (cefTRIAXone) IM 1 grams IM once Route: IM; Site: left gluteus; rg5 06:33 Drug: Bupivacaine Infiltration (0.5 %) 10 ml 10 ml Infiltration once {Note: given by rg5 provider.} Volume: 10 ml; Route: Infiltration; 07:03 Drug: NS 0.9% IV 1000 ml IV at 1 bolus Per protocol; to be given as a bolus over 60 rg5 minutes Route: IV; Rate: 1 bolus; Site: right antecubital; Medication: 05:10 VIS not applicable for this client. vc1 Outcome: 07:22 Discharge ordered by . rt 08:18 Discharged to home ambulatory, iw 08:18 Condition: good 08:18 Discharge instructions given to patient, Instructed on discharge instructions, follow up and referral plans. medication usage, Demonstrated understanding of instructions, follow-up care, medications, Prescriptions given X 1, 08:19 Patient left the ED. iw Signatures: Ramon, IsabelleDEJA mccain RN, Brian, RN RN bp Maria C Hart RN RN vc1 Davy Toribio MD MD rt Gilles Beach MD MD sp4 Jessica Strong 2 Macario Navarro RN RN rg5 Yuki Oliva 3 Corrections: (The following items were deleted from the chart) 05:09 05:08 PSHx: None; vc1 vc1
--- NOTE | 2024-12-15 07:23 | EDPHYS ---
Physician Documentation [facility] Name: Jono Garces Age: 19 yrs Sex: Female : 2005 Arrival Date: 12/15/2024 Time: 04:54 Bed 18 Private MD: ED Physician Davy Toribio HPI: 12/15 04:58 This 19 yrs old Black Female presents to ER via Unassigned with complaints of sp4 Toothache, Type 1 diabetic, 14 weeks preg. 07:16 19-year-old female type I diabetic at 14 weeks EGA presents with acute right lower sp4 dental pain. Pain is around tooth #32 that has large size cavity. 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 - Infectious Disease History:: Denies. - Social history:: Smoking status: Patient denies any tobacco usage or history of. - Family history:: not pertinent. ROS: 07:16 Constitutional: Negative for fever, chills, and weight loss, positive for right lower sp4 dental pain. 07:16 All other systems are negative, Exam: 07:16 Constitutional: This is a well developed, well nourished patient who is awake, alert, sp4 and in no acute distress. Head/Face: Normocephalic, atraumatic. Eyes: Pupils equal round and reactive to light, extra-ocular motions intact. Lids and lashes normal. Conjunctiva and sclera are not injected. Cornea within normal limits. Periorbital areas with no swelling, redness, or edema. ENT: Nares patent. No nasal discharge, no septal abnormalities noted. Tympanic membranes are normal and external auditory canals are clear. Oropharynx with no redness, swelling, or masses, exudates, or evidence of obstruction, uvula midline. Mucous membranes moist. Neck: Trachea midline, no thyromegaly or masses palpated, and no cervical lymphadenopathy. Supple, full range of motion without nuchal rigidity, or vertebral point tenderness. Chest/axilla: Normal chest wall appearance and motion. Nontender with no deformity. No lesions are appreciated. Cardiovascular: Regular rate and rhythm with a normal S1 and S2. No gallops, murmurs, or rubs. Normal PMI, no JVD. No pulse deficits. Respiratory: Lungs have equal breath sounds bilaterally, clear to auscultation and percussion. No rales, rhonchi or wheezes noted. No increased work of breathing, no retractions or nasal flaring. Abdomen/GI: Soft, with normal bowel sounds. No distension or tympany. No guarding or rebound. No evidence of tenderness throughout. Back: No spinal tenderness. No costovertebral tenderness. Skin: Warm, dry with normal turgor. Normal color with no rashes, no lesions, and no evidence of cellulitis. MS/ Extremity: Pulses equal, no cyanosis. Neurovascular intact. Full, normal range of motion. Neuro: Awake and alert, GCS 15, oriented to person, place, time, and situation. Cranial nerves II-XII grossly intact. Motor strength 5/5 in all extremities. Sensory grossly intact. Psych: Awake, alert, with orientation to person, place and time. Behavior, mood, and affect are within normal limits Vital Signs: 05:06 Weight 95.71 kg; Height 5 ft. 5 in. ; Pain 10/10; vc1 05:11 BP 138 / 72; Pulse 87; Resp 14; Temp 98.2; Pulse Ox 100% ; vc1 06:05 BP 133 / 73; Pulse 87; Temp 98.4; Pulse Ox 100% on R/A; af3 07:30 BP 117 / 68; Pulse 80; Resp 16; Pulse Ox 100% ; bp 05:06 Body Mass Index 35.11 (95.71 kg, 165.1 cm) vc1 05:06 Pain Scale: Adult vc1 [place] Coma Score: 07:16 Eye Response: spontaneous(4). Motor Response: obeys commands(6). Verbal Response: sp4 oriented(5). Total: 15. MDM: 07:06 Medical Screening Exam initiated sp4 07:16 Differential diagnosis: dental caries, gingivitis, dental abscess, aphthous ulcers, sp4 gingivostomatitis. Data reviewed: vital signs, nurses notes, lab test result(s). ED course: Right lower inferior alveolar nerve dental block was performed with Marcaine 8 mL. Pain was alleviated. Patient requested her labs checked to make sure she is not in DKA. Chemistry panel is pending at this time. Patient was signed out to Dr. Gabriel. 07:23 I considered the following discharge prescriptions or medication management in the rt emergency department Medications were administered in the Emergency Department. See MAR. Test considered but Not performed: CT: No signs of drainable abscess, RPA, DOOR CAPTAIN, Reinier's angina, CT scan is not indicated. Care significantly affected by the following chronic conditions: Diabetes. Counseling: I had a detailed discussion with the patient and/or guardian regarding the historical points, exam findings, and any diagnostic results supporting the discharge/admit diagnosis, lab results, the need for outpatient follow up. 12/15 06:37 Order name: CBC with Diff; Complete Time: 07:15 sp4 12/15 06:37 Order name: CMP; Complete Time: 07:16 sp4 12/15 06:37 Order name: IV Saline Lock; Complete Time: 06:44 sp4 12/15 06:37 Order name: Labs collected and sent; Complete Time: 06:44 sp4 Administered Medications: 06:30 Drug: Rocephin (cefTRIAXone) IM 1 grams IM once Route: IM; Site: left gluteus; rg5 06:33 Drug: Bupivacaine Infiltration (0.5 %) 10 ml 10 ml Infiltration once {Note: given by rg5 provider.} Volume: 10 ml; Route: Infiltration; 07:03 Drug: NS 0.9% IV 1000 ml IV at 1 bolus Per protocol; to be given as a bolus over 60 rg5 minutes Route: IV; Rate: 1 bolus; Site: right antecubital; Disposition: 20:06 Chart complete. sp4 Disposition Summary: 12/15/24 07:22 Discharge Ordered Notes: Location: Home rt Problem: new rt Symptoms: have improved rt Condition: Stable rt Diagnosis - Dental pain rt Followup: rt - With: Private Physician - When: 2 - 3 days - Reason: Discharge Instructions: - Discharge Summary Sheet rt - Dental Pain rt Forms: - Work release form iw - Medication Reconciliation Form rt - Antibiotic Education rt - Prescription Opioid Use rt - Patient Portal Instructions rt - Leadership Thank You Letter rt Prescriptions: - Amoxicillin 875 mg Oral Tablet - take 1 tablet ORAL route every 12 hours for 10 days; 20 tablet; Refills: 0, rt Product Selection Permitted Signatures: Dispatcher [employer] Maria C Rios RN RN vc1 Davy Toribio MD MD rt Gilles Beach MD MD sp4 Macario Navarro RN RN rg5 Corrections: (The following items were deleted from the chart) 05:09 05:08 PSHx: None; vc1 vc1
[2024-12-15 08:26] VITALS: TEMP 98.4
[2024-12-15 08:36] VITALS: BP 157/98; O2SAT 97
== END 2024-12-15 08:19 | disposition home or self-care (01) ==
LOC: ER 04:54
DX: O26.891 Other specified pregnancy related conditions, first trimester (principal); K08.89 Other specified disorders of teeth and supporting structures; O24.011 Pre-existing type 1 diabetes mellitus, in pregnancy, first trimester; Z79.4 Long term (current) use of insulin; Z3A.14 14 weeks gestation of pregnancy
CPT/HCPCS: 85025; 36415; 80053; J7030; J0696; 96372; 99284